=== PATIENT | male | born 1960 | race Caucasian/White ===

== ENCOUNTER 2024-03-16 14:06 | Outpatient (CLI) | payer BC, SELFPAY ==
[2024-03-16 14:23] LABS: Basophils # 0.1 K/mm3 (0-0.2); Basophils % 1.8 % (0.1-2.0); Eosinophils # 0.1 K/mm3 (0.0-0.4); Eosinophils % 1.1 % (0.1-12.0); Hematocrit 51.3 % (42.0-52.0); Hemoglobin 16.7 g/dL (14.1-18.0); Lymphocytes # 1.2 K/mm3 (0.7-4.5); Lymphocytes % 21.6 % (10-50); Mean Corpuscular HGB Conc 32.7 g/dL (31.8-35.4); Mean Corpuscular Hemoglobin 29.6 pg (27.0-31.2); Mean Corpuscular Volume 90.4 fl (80-94); Monocytes # 0.4 K/mm3 (0.1-1.0); Monocytes % 7.2 % (1.7-9.3); Neutrophils # 3.7 K/mm3 (1.8-7.8); Neutrophils % 68.4 % (37.0-80.0); Platelet Count 183 K/mm3 (142-424); Red Blood Count 5.67 M/mm3 (4.60-6.20); Red Cell Distribution Width 15.5 % (11.5-17.5); White Blood Count 5.4 K/mm3 (4.8-10.8)
[2024-03-17 08:33] LABS: Sex Hormone Binding Globulin 35.4 nmol/L (19.3-76.4)
[2024-03-17 14:46] LABS: PSA, Free 0.38 ng/mL; Prostate Specific Ag 1.7 ng/mL (0.0-4.0)
[2024-03-21 16:16] LABS: Testosterone, Total, LC/MS 769 ng/dL (.)
[2024-03-21 18:12] LABS: Testosterone,Free 17.8 pg/mL (6.6-18.1)
== END 2024-03-16 23:59 | disposition home or self-care (01) ==
LOC: LAB 14:08
PROVIDERS: Visit Provider Urology
DX: E29.1 Testicular hypofunction (principal); N40.0 Benign prostatic hyperplasia without lower urinary tract symptoms
CPT/HCPCS: 36415; 84153; 84154; 84270; 84402; 84403; 85025